=== PATIENT | female | born 1955 | race Caucasian/White ===

== ENCOUNTER 2018-11-06 01:00 | Outpatient (CLI) | payer BC, SELFPAY ==
--- NOTE | 2018-11-06 13:00 | DI.MAMMO_ITS ---
SYMPTOM/DIAGNOSIS: SCREENING Z12.31 MAMMOGRAM: Mammograms were interpreted according to the usual protocol including computer analysis with CAD system, tomosynthesis and C view imaging. Comparison with prior examinations. Breast density B. No suspicious masses or microcalcifications are seen. There is an asymmetric density in the outer left breast seen on the cranial caudad view. This area should be further evaluated with spot compression view. Ultrasound may be indicated at that time.. IMPRESSION: Additional views of the left breast as described. Category 0 - B MQSA ASSESSMENT OF FINDINGS: Incomplete: Needs additional imaging evaluation. Category 0. Patient will receive a letter notifying them of these results. BI-RADS category B. There are scattered areas of fibroglandular density.
== END 2018-11-06 01:20 ==
PROVIDERS: PCP Family Medicine; Visit Provider Nurse Practitioner Family
DX: Z12.31 Encounter for screening mammogram for malignant neoplasm of breast (principal); R92.8 Other abnormal and inconclusive findings on diagnostic imaging of breast
CPT/HCPCS: 77063; 77067

== ENCOUNTER 2018-11-15 01:47 | Outpatient (CLI) | payer BC, SELFPAY ==
--- NOTE | 2018-11-15 09:15 | DI.MAMMO_ITS ---
SYMPTOM/DIAGNOSIS: F/U MAMMO, ASYMMETRIC DENSITY LEFT BREAST ADDITIONAL VIEWS: Additional images are interpreted according to the usual protocol including tomosynthesis and 2D imaging. Spot compression CC view was performed of a questioned focal asymmetry in the lateral breast. No persistent abnormality is seen. IMPRESSION: Category 1, negative mammogram. Yearly screening mammography is recommended. SA ASSESSMENT OF FINDINGS: Negative. Category 1. Patient will receive a letter notifying them of these results. BI-RADS category B. There are scattered areas of fibroglandular density.
== END 2018-11-15 02:07 ==
PROVIDERS: PCP Family Medicine; Visit Provider Nurse Practitioner Family
DX: Z12.31 Encounter for screening mammogram for malignant neoplasm of breast (principal); R92.8 Other abnormal and inconclusive findings on diagnostic imaging of breast; N64.59 Other signs and symptoms in breast
CPT/HCPCS: 77063; 77067

== ENCOUNTER 2019-01-08 09:10 | Day surgery (SDC) | payer BC, SELFPAY ==
--- NOTE | 2019-01-08 06:51 | W.COLOREPORT ---
Date of service: 01/08/19 Time of Service: 10:53 Colonoscopy Report Date of procedure: 01/08/19 Pre-op diagnosis general: Colon Cancer Screening Post-op diagnosis procedure note: other (descending and sigmoid colon polyp) Procedure: Colonoscopy with polypectomy Surgeon: Malgorzata Leong Anesthesia proc note operative: other (general/ ASA 2/ Faisal Reece CRNA) Estimated blood loss (mL): 3 Pathology: other (descending and sigmoid polyp) Complications: None Disposition: no change Indications: Mrs. Castillo is a pleasant 63 year old seen in the office for a follow up Colonoscopy. Her last colonoscopy was in 2006 and was normal. Risks, benefits and complications have been reviewed. Complications include but are not limited to bleeding, pain, perforation, missed small lesion/polyp, sore throat, aspiration and adverse reaction to the medications. Questions were entertained and answered to their satisfaction and they wished to proceed. No guarantees were given or implied. Prep: Miralax/Dulcolax Procedure Start Time: 10:53 Procedure End Time: 11:14 Retraction Time: 16 minutes Findings: 2 small sessile polyps removed with cold forceps. Procedure Description: After informed consent was obtained the patient was taken to the procedure room and placed in a left decubitous position. Monitors were applied and a time out was done. The patients name, date of , procedure, allergies to medications and metal in their body was reviewed. The patient was then sedated. Once sedated and comfortable a rectal exam was done. External exam was normal. Internal exam revealed a normal sphincter tone and no palpable masses. The scope was then introduced and retro-flexed. No internal hemorrhoids, masses or polyps were identified. The scope was then advanced to the cecum without difficulty. The TI and appendiceal orifice were identified. The prep was good. The scope was then slowly retracted over 16 minutes back into the rectum. Polyps were removed with cold forceps in the descending and sigmoid colon. The scope was removed and the patient was woken up and taken back to Same day surgery in stable condition. The patient tolerated the procedure well and there were no immediate complications. Follow up: The patient should follow up in 3-5 years unless they develop changes in bowel habits or other new gastrointestinal complaints.
--- NOTE | 2019-01-08 06:53 | W.PM.DSUDISC ---
Discharge Plan Disposition Patient Disposition: HOME Condition: Good Discharge Details Reason For Visit: Colon Cancer Screening Attending Provider: Malgorzata Leong Primary Care Provider: Erendira Jung Home Meds and New Rx's Prescriptions: Continued omeprazole 20 mg capsule,delayed release(DR/EC) 20 mg PO DAILY RF: 0 lamotrigine [Lamictal] 200 mg tablet 200 mg PO BID RF: 0 metoprolol succinate 100 MG tablet extended release 24 hr 100 mg PO DAILY RF: 0 Colace 50 MG capsule 250 mg PO BID RF: 0 lamotrigine [Lamictal] 25 MG tablet, chewable dispersible 50 mg PO BID RF: 0 lisinopril 10 MG tablet 10 mg PO DAILY RF: 0 aspirin [Aspirin Low-Strength] 81 MG tablet,chewable 81 mg PO DAILY RF: 0 vitamin E succinate 400 UNIT tablet 400 unit PO BID RF: 0 simvastatin 20 MG tablet 20 mg PO DAILY RF: 0 cholecalciferol (vitamin D3) 1,000 UNIT capsule 1,000 unit PO BID RF: 0 calcium carbonate [Calcium 600] 600 mg calcium (1,500 mg) Tablet 600 mg PO DAILY RF: 0 acetaminophen [Tylenol Arthritis Pain] 650 mg Tablet Extended Release 650 mg PO ONCE RF: 0 Discontinued polyethylene glycol 3350 17 gram/dose powder 238 g PO ONCE Qty: 238 RF: 0 bisacodyl [Dulcolax (bisacodyl)] 5 mg tablet,delayed release (DR/EC) 5 mg PO ONCE Qty: 4 RF: 0 Discharge Instructions Instructions: Colonoscopy (DC), Colorectal Polyps (DC) Additional Instructions: Findings: 2 small polyps Follow up:depends on final pathology report. I will send you a letter in the mail with the recommendations Please call if you develop: fevers >101.5 Nausea or Vomiting Abdominal pain that is not transient DAY SURGERY UNIT POST COLONOSCOPY INSTRUCTIONS 1. Because there will be medication in your system for the next 24 hours, you may feel a little sleepy. Your coordination will be affected. Therefore: a. Do not drive or operate dangerous equipment for 24 hours. b. Do not drink alcohol beverages for 24 hours (not even beer). c. Plan to go home and rest for the day. 2. Generally there are no restrictions on your activity after a day or so has gone by, but you may feel a bit fatigued for a few days. 3 After you arrive home you may have a light meal and return to a normal diet as you can tolerate it without feeling sick to your stomach. 4. After surgery, you may feel pain or discomfort. This should be only transient, but if it persists please contact your doctor. 5. If there are any questions regarding the findings of your procedure, please feel free to contact your doctor. 6. If you are unable to contact your doctor with a problem, contact the hospital at [phone]. 7. Continue all your regular medications unless directed otherwise. I understand the above instructions and have no questions. Signature of Patient or Responsible Adult Escort Date/Time Name of Responsible Adult Escort Signature of Nurse Date/Time Activity:: Activity as Tolerated Diet:: As Tolerated Discharge Orders Discharge Orders: Discharge Order (Routine); Ordered 01/08/19 Ordered By: Malgorzata Leong DS: Diagnosis Discharge Diagnosis (1) S/P colonoscopy: Status: Acute (2) Colorectal polyps: Status: Acute
[2019-01-08 09:45] VITALS: BP 143/89; PULSE 66; RESP 16; TEMP 35.9; O2SAT 97
[2019-01-08] MEDS: Lactated Ringers 1,000 ML 80 ML IV (10:00)
--- NOTE | 2019-01-08 11:06 | BOWEL_PTH ---
PATIENT: Heather Castillo LOC: [facility] U#:[id number] AGE/SX: 63/F ROOM: RE01/08/[address]: Malgorzata Leong MD : 1955 BED: DIS: 01/08/2019 SPEC #: [id number] RECD: 01/08/19 12:36 STATUS: MARICARMEN REQ #: [id number] SHAREE: 01/08/19 11:[address]: Malgorzata Leong DEPT: Surgical Specimen RECD BY: Diann Hernandez ENTERED: 01/08/19 12:37 SP TYPE: Bowel OTHR DR: Erendira Jung Tissues: 1 - BIOPSY BOWEL 2 - BIOPSY BOWEL Procedures: GROSS AND MICRO LEVEL 4 Comments: [id number]
[2019-01-08 11:50] VITALS: BP 150/83; PULSE 63; RESP 16; TEMP 36.2; O2SAT 95
== END 2019-01-08 12:32 | disposition home or self-care (01) ==
LOC: SUR 09:10
PROVIDERS: PCP Family Medicine; Visit Provider Surgery
PROC: 0DJD8ZZ Inspection of Lower Intestinal Tract, Via Natural or Artificial Opening Endoscopic (ICD-10-PCS; CPT 45378; principal; 2019-01-08 10:00)
DX: Z12.11 Encounter for screening for malignant neoplasm of colon (principal); D12.4 Benign neoplasm of descending colon; K63.5 Polyp of colon; I10 Essential (primary) hypertension
CPT/HCPCS: 45380; 88305

== ENCOUNTER 2020-01-23 02:06 | Outpatient (CLI) | payer BC, SELFPAY ==
--- NOTE | 2020-01-23 10:30 | DI.MAMMO_ITS ---
EXAM: MG MAMMO SCREENING CLINICAL HISTORY: screening TECHNIQUE: Mammograms were interpreted according to the usual protocol including computer analysis w [employer] CAD system, tomosynthesis and C-view imaging. COMPARISON: FINDINGS: The breasts are of moderate density with fairly symmetrical distribution of fibroglandular tissue. N o dominant mass or clumped microcalcification is identified the current examination is compared with previous examinations including October 2018 and there has been no gross interval change in appearance in comparison with the previous studies. IMPRESSION: No specific evidence of malignancy at this time. Routine screening examinations are suggested at yea rly intervals in this age group according to the ACS ACR guidelines. BI-RADS Cat 1 - Negative: Breast Density - Category B - Scattered areas of fibroglandular density
== END 2020-01-23 02:26 ==
PROVIDERS: PCP Family Medicine; Visit Provider Nurse Practitioner Family
DX: Z12.31 Encounter for screening mammogram for malignant neoplasm of breast (principal)
CPT/HCPCS: 77063; 77067

== ENCOUNTER 2020-02-07 17:33 | Outpatient (REF) | payer BC, SELFPAY ==
[2020-02-07 16:57] LABS: Bacteria Moderate HPF (Negative); C & S Indicated? C&S Done As Ordered; Crystals Negative HPF (Negative); Epithelial Cells Rare HPF (Negative); Mucus Heavy (Negative); WBC 20-50 HPF (0-5)
== END 2020-02-07 17:53 ==
LOC: LBN 17:33
PROVIDERS: PCP Family Medicine; Visit Provider Nurse Practitioner Family
DX: R31.9 Hematuria, unspecified (principal)
CPT/HCPCS: 81015; 87086

== ENCOUNTER 2020-02-13 01:47 | Outpatient (CLI) | payer BC, SELFPAY ==
--- NOTE | 2020-02-13 12:30 | DI.US_ITS ---
EXAM: US PELVIS TRANSVAGINAL CLINICAL HISTORY: POSTMENOPAUSAL BLEEDING, H/O ENDOMETRIAL POLYP,N95.0 TECHNIQUE: Ultrasound performed using standard protocol. COMPARISON: US PELVIS TRANSVAG from 10/31/2012 FINDINGS: Pelvic ultrasound was performed transabdominally and transvaginally. Please see the accompanying nikki a sheet for measurements of the pelvic structures. The ovaries are unremarkable in appearance with no evidence a mass. The myometrium is unremarkable. The endometrial stripe is thickened and mildly heterogeneous, measuring about 19 millimeters in thic kness. This is an abnormal finding in a postmenopausal patient, endometrial biopsy should be conside red to exclude neoplasm. Limited scanning of the kidneys is unremarkable. No free fluid identified in the cul-de-sac. IMPRESSION: Marked mildly heterogeneous thickening of endometrial stripe, endometrial biopsy should be considered to evaluate the possibility of neoplasm. DATA REPOSITORY:
== END 2020-02-13 02:07 ==
PROVIDERS: PCP Family Medicine; Visit Provider Nurse Practitioner Family
DX: N95.0 Postmenopausal bleeding (principal); R93.89 Abnormal findings on diagnostic imaging of other specified body structures
CPT/HCPCS: 76830; 76856

== ENCOUNTER 2020-02-18 03:32 | Outpatient (CLI) | payer BC, SELFPAY ==
[2020-02-18 10:58] LABS: Abs Immature Grans 0.01 k/cumm (0.0-0.09); Absolute Basophil Count 0.03 k/cumm (0.0-0.2); Absolute Eosinophil Count 0.22 k/cumm (0.0-0.7); Absolute Lymphocyte Count 1.76 k/cumm (1.2-3.4); Absolute Monocyte Count 0.46 k/cumm (0.11-0.7); Absolute Neutrophil Count 2.76 k/cumm (1.2-6.7); Basophils % 0.6; Eosinophils % 4.2; HCT 39.2 % (36.0-46.0); HGB 13.5 g/dL (12.0-15.5); Immature Grans % 0.2 %; Lymphocytes % 33.6; Mean Corp. HGB Concentration 34.4 g/dL (32.0-36.0); Mean Corpuscular Hemoglobin 32.1 pg (27.0-33.0); Mean Corpuscular Volume 93.3 fL (80-95); Mean Platelet Volume 9.2 fL (8.0-11.0); Monocytes % 8.8; Neutrophils % 52.6; Platelet Count 257 x1000/uL (130-400); RBC Distribution Width 12.9 % (11.7-14.6); White Blood Cell Count 5.24 k/cumm (4.4-10.8)
== END 2020-02-18 03:52 ==
PROVIDERS: PCP Family Medicine; Visit Provider Obstetrics & Gynecology
DX: N95.0 Postmenopausal bleeding (principal); Z01.818 Encounter for other preprocedural examination
CPT/HCPCS: 36415; 86850; 86900; 86901; 85025

== ENCOUNTER 2020-02-18 08:33 | Outpatient (CLI) | payer BC, SELFPAY ==
[2020-02-18 23:24] LABS: COVID-19 RT-PCR UVMMC Result Negative (Negative)
== END 2020-02-18 08:53 ==
PROVIDERS: PCP Family Medicine; Visit Provider Obstetrics & Gynecology
DX: Z01.818 Encounter for other preprocedural examination (principal); Z11.59 Encounter for screening for other viral diseases
CPT/HCPCS: U0003

== ENCOUNTER 2020-02-20 06:15 | Day surgery (SDC) | payer BC, SELFPAY ==
[2020-02-20] VITALS (8 sets, daily range): BP systolic 72–153; BP diastolic 39–92; PULSE 52–67; RESP 12–18; TEMP 36–36.7; O2SAT 95–99
[2020-02-20] MEDS: Lactated Ringers 1,000 ML 125 ML IV (07:05)
--- NOTE | 2020-02-20 08:01 | ENDOMET_PTH ---
PATIENT: Heather Castillo LOC: [facility] U#:[id number] AGE/SX: 64/F ROOM: RE02/20/[address]: James Joyner MD : 1955 BED: DIS: 02/20/2020 SPEC #: [id number] RECD: 02/20/20 12:15 STATUS: MARICARMEN REQ #: [id number] SHAREE: 02/20/20 08:[address]: James Joyner DEPT: Surgical Specimen RECD BY: Lisy Hyde ENTERED: 02/20/20 12:16 SP TYPE: Endomet OTHR DR: Erendira Jung Tissues: 1 - ENDOMETRIUM BX/CURRETTE 2 - ENDOMETRIUM BX/CURRETTE Procedures: GROSS AND MICRO LEVEL 4 Comments: [id number]
[2020-02-20] MEDS: Lidocaine 1% Multi-Dose 50 ML VIAL (08:15)
--- NOTE | 2020-02-20 09:02 | W.PM.OP ---
Date of service: 02/20/20 Time of Service: 09:02 Operative Note Operative Note DATE OF PROCEDURE: 02/20/20 PRE-OP DIAGNOSIS: Postmenopausal bleeding POST-OP DIAGNOSIS: same PROCEDURE: Hysteroscopy D&C with polypectomy SURGEON: James Joyner ANESTHESIA: NEETA PATHOLOGY: other (1. Endometrial polyp 2. Endometrial curettings) COMPLICATIONS: None Patient was transported to: PACU Patient's condition: stable Findings: Large 4 cm polyp filling the endometrial cavity. Atrophic appearing endometrium Procedure Description: The patient was taken to the operating room and after an adequate level of sedation was achieved the patient was placed in lithotomy position. The patient was prepped and draped in usual sterile manner. A weighted speculum was placed in the vagina with good visualization of the cervix. The cervix was grasped with a single-tooth tenaculum. Approximately 15 mL's of 1% plain lidocaine solution was used to instill a paracervical block. The cervix was gently dilated with Nguyen dilators. The tip of the polyp could be visualized at the external os. The 3 mm flexible hysteroscope with normal saline distention media was advanced to the cervix. A large endometrial polyp that filled the endometrial cavity was noted. Hysteroscope was removed. Polyp forceps were advanced and the polyp was grasped and rotated. The polyp was removed and submitted as an individual specimen. The hysteroscope was reinserted and the remainder of the endometrium appeared atrophic. The polyp had been removed in its entirety. A sharp curettage was performed and this was submitted as separate specimen. All instrumentation was removed. The procedure was concluded at this point. Sponge and instrument counts were correct at the occlusion of the procedure. The patient was transferred to PACU in stable condition.
--- NOTE | 2020-02-20 09:39 | W.PM.DSUDISC ---
Discharge Plan Disposition Patient Disposition: HOME Condition: Good Discharge Details Attending Provider: James Joyner Primary Care Provider: Erendira Jung Home Meds and New Rx's Prescriptions: Continued omeprazole 20 mg capsule,delayed release(DR/EC) 20 mg PO DAILY RF: 0 lamotrigine [Lamictal] 200 mg tablet 250 mg PO BID RF: 0 metoprolol succinate 100 MG tablet extended release 24 hr 100 mg PO DAILY RF: 0 Colace 50 MG capsule 250 mg PO BID RF: 0 lisinopril 10 MG tablet 10 mg PO DAILY RF: 0 aspirin [Aspirin Low-Strength] 81 MG tablet,chewable 81 mg PO DAILY RF: 0 vitamin E succinate 400 UNIT tablet 400 unit PO BID RF: 0 simvastatin 20 MG tablet 20 mg PO DAILY RF: 0 cholecalciferol (vitamin D3) 1,000 UNIT capsule 1,000 unit PO BID RF: 0 calcium carbonate [Calcium 600] 600 mg calcium (1,500 mg) Tablet 600 mg PO DAILY RF: 0 acetaminophen [Tylenol Arthritis Pain] 650 mg Tablet Extended Release 650 mg PO ONCE RF: 0 aspirin [Aspir-81] 81 mg Tablet,Delayed Release (Dr/Ec) 81 mg PO DAILY RF: 0 Discharge Instructions Stand Alone Forms: DSU Post Suction D+C, Dione Caputo (DSU) Activity:: Activity as Tolerated Remove Dressings/Wound Care:: Do Not Remove Diet:: As Tolerated Discharge Orders Discharge Orders: Discharge Order (Routine); Ordered 02/20/20 Ordered By: James Joyner Discharge Data Discharge Comment: Follow up with Dr. Joyner in one week DS: Diagnosis Discharge Diagnosis (1) Postmenopausal Bleeding: Status: Acute
== END 2020-02-20 10:25 | disposition home or self-care (01) ==
PROVIDERS: PCP Family Medicine; Visit Provider Obstetrics & Gynecology
PROC: 0UDB8ZZ Extraction of Endometrium, Via Natural or Artificial Opening Endoscopic (ICD-10-PCS; CPT 58558; principal; 2020-02-20 07:30)
DX: N95.0 Postmenopausal bleeding (principal); N84.0 Polyp of corpus uteri; R93.89 Abnormal findings on diagnostic imaging of other specified body structures; K21.9 Gastro-esophageal reflux disease without esophagitis; G47.33 Obstructive sleep apnea (adult) (pediatric); I10 Essential (primary) hypertension
CPT/HCPCS: 58558; 88305; J1100; J1885; J2001; J2405; J3010

== ENCOUNTER 2020-12-22 17:35 | Outpatient (REF) | payer MEDICARE, BC, SELFPAY ==
--- NOTE | 2020-12-22 16:00 | PAPFT_PTH ---
PATIENT: Heather Castillo LOC: [facility] U#:[id number] AGE/SX: 65/F ROOM: RE12/22/[address]: MILDRED Mccord : 1955 BED: DIS: 12/22/2020 SPEC #: [id number] RECD: 12/22/20 18:33 STATUS: MARICARMEN REQ #: [id number] SHAREE: 12/22/20 16:[address]: Christy Perdomo DEPT: COUNT INCLUDES THE [facility] Cytology RECD BY: Lisy Hyde ENTERED: 12/22/20 18:34 SP TYPE: PAPFT OTHR DR: Erendira Jung Tissues: 1 - CX/ENDOCX FOR PAP SMEARS Procedures: PAP THIN PREP/UVM Screening HPV DNA PROBE Comments: [id number]
== END 2020-12-22 17:36 | disposition home or self-care (01) ==
LOC: LBN 17:35
PROVIDERS: PCP Family Medicine; Visit Provider Nurse Practitioner Family
DX: Z12.4 Encounter for screening for malignant neoplasm of cervix (principal); Z11.51 Encounter for screening for human papillomavirus (HPV)
CPT/HCPCS: 88142; 87624

== ENCOUNTER 2021-02-02 01:14 | Outpatient (CLI) | payer MEDICARE, BC, SELFPAY ==
--- NOTE | 2021-02-02 10:45 | DI.MAMMO_ITS ---
Exam(s) MAMMO SCREENING EXAM: MAMMO SCREENING CLINICAL HISTORY: screening,Z12.39. TECHNIQUE: Bilateral full field digital CC and MLO mammographic images were obtained with 3D tomosyn thesis and utilizing computer aided detection (CAD). COMPARISON: Prior mammograms dating back to 2011, the most recent being January 2020. FINDINGS: There has been no significant change in the appearance and distribution of the fibroglandular tissue. There are no new spiculated masses nor malignant appearing microcalcification groups. There is no significant architectural distortion nor skin thickening-retraction. IMPRESSION: No radiographic evidence of malignancy. BI-RADS Category 1 - Negative Breast Density - Category B - Scattered areas of fibroglandular density Breast density Category C or D implies that the patient has dense breast tissue. Dense breast tissue can make it harder to find cancer on a mammogram. Dense breast tissue is also associated with an incr eased risk of breast cancer. This information about the result of the mammogram report was provided to the patient to raise their awareness. Use this report when you speak with the patient about their risks for breast cancer, which includes their family history. At that time, you may recommend additional screening tests (Ultrasoun d or MRI) as these tests may add significant information. A negative radiographic report should not delay biopsy if a dominant or clinically suspicious mass is present. Up to ten percent of cancers are not identified on mammography. A negative report may reinforce clinical impression. Adenosis and dense breasts may obscure an underlying neoplasm. False positive reports average 6 to 10%. Patient will receive a letter notifying them of these results.
== END 2021-02-02 01:34 ==
PROVIDERS: PCP Family Medicine; Visit Provider Nurse Practitioner Family
DX: Z12.31 Encounter for screening mammogram for malignant neoplasm of breast (principal)
CPT/HCPCS: 77063; 77067

== ENCOUNTER → 2022-02-09 00:17 | Outpatient (CLI) | payer MEDICARE, SELFPAY ==
--- NOTE | 2022-02-09 15:40 | DI.MAMMO_ITS ---
Exam(s) MAMMO SCREENING EXAM: MAMMO SCREENING CLINICAL HISTORY: screening TECHNIQUE: Mammograms were interpreted according to the usual protocol including computer analysis w [employer] CAD system, tomosynthesis and C-view imaging. COMPARISON: 2011 through 2020 FINDINGS: The breasts are composed of scattered fibroglandular densities, Breast Density category B. No suspicious masses or suspicious microcalcifications are seen. No skin thickening or abnormal axillary lymph nodes are seen. There has been no significant change from prior exams. IMPRESSION: BI-RADS Category 1, Negative mammogram Yearly screening mammography is recommended. Breast Density - Category B, scattered fibroglandular densities. A negative radiographic report should not delay biopsy if a dominant or clinically suspicious mass is present. Up to ten percent of cancers are not identified on mammography. A negative report may reinforce clinical impression. Adenosis and dense breasts may obscure an underlying neoplasm. False positive reports average 6 to 10%. Patient will receive a letter notifying them of these results.
== END ==
PROVIDERS: PCP Family Medicine; Visit Provider Nurse Practitioner Family
DX: Z12.31 Encounter for screening mammogram for malignant neoplasm of breast (principal)
CPT/HCPCS: 77063; 77067

== ENCOUNTER 2022-05-17 11:12 | Outpatient (CLI) | payer MEDICARE, SELFPAY ==
--- NOTE | 2022-05-17 11:00 | DI.RAD_ITS ---
Exam(s) XR HIP RT COMPLETE AP PELVIS EXAM: XR HIP RT COMPLETE AP PELVIS INDICATION: pain in hip. COMPARISON: No exams were available for comparison TECHNIQUE: 2D digital imaging was performed. Two views. FINDINGS: Hip joint spaces are well maintained. There is spurring at the right acetabular. There is also mild spurring at the margin of the right femoral head. There is mild spurring at the left acetabulum. T here enthesophytes at the greater trochanters. IMPRESSION: Degenerative changes of the hips, right greater than left. DATA REPOSITORY: RADIATION DOSE DELIVERED:
== END 2022-05-17 11:13 | disposition home or self-care (01) ==
LOC: DIORS 11:12
PROVIDERS: PCP Family Medicine; Referring Provider Family Medicine; Visit Provider Physician Assistant Surgical
DX: M16.11 Unilateral primary osteoarthritis, right hip (principal)
CPT/HCPCS: 99203; 73502

== ENCOUNTER → 2022-05-27 01:41 | Outpatient (CLI) | payer MEDICARE, SELFPAY ==
--- NOTE | 2022-05-27 08:15 | DI.RAD_ITS ---
Exam(s) RF JOINT INJECTION FLUORO GUID EXAM: RF JOINT INJECTION FLUORO GUID CLINICAL HISTORY: R HIP INJ UNDER FLUORO,RT HIP PAIN, M25.551 TECHNIQUE: 2D and realtime digital imaging was performed. COMPARISON: No exams were available for comparison FINDINGS: Fluoroscopy is utilized by Dr. Fernandez during right hip injection. Hard copy shows injection in the right hip joint. IMPRESSION: RADIATION DOSE DELIVERED: lyla Babcock=0.39 mGy Total DLP
[2022-05-27] MEDS: Omnipaque 300 MG/ML 10 ML BTL 5 ML IJ (15:43)
[2022-05-27] MEDS: Bupivacaine 0.5% Pres-Free 10 ML VIAL 5 ML IJ (15:45)
[2022-05-27] MEDS: methylPREDNISolone ACETATE 80 MG/ML VIAL IM (15:45)
--- NOTE | 2022-05-27 17:45 | W.PROCNOTE ---
Date of service: 05/27/22 Time of Service: 14:40 Procedure Note Date of procedure: 05/27/22 Procedure: Right Hip Injection with Fluoroscopic Guidance Surgeon/Proceduralist/Physician: Prakash Fernandez Procedure Diagnosis: Right Hip Femoroacetabular Impingement Procedure Indications: Heather has had persistent pain of the RIGHT hip and groin. Noninvasive measures have been tried. To serve as both diagnostic and therapeutic, an injection under fluoroscopy was recommended. I had discussed the risks of the procedure and the patient elected to proceed. Procedure Description: Heather was greeted in the flouroscopy room. The correct side was identified and the consent was reviewed with the patient and signed. The patient was then placed in the supine position on the fluoroscopy table. The RIGHT hip was then prepped with Chloraprep. The anterolateral injection starting point was identiifed by bony landmarks and fluoroscopy. The skin and soft tissue in the tract of the injection was anesthetized with 1% Lidocaine. A spinal needle was then inserted deep into the hip joint at the level of the lateral femoral neck under fluoroscopic guidance. A small amount of Omnipaque solution was injected to confirm intraarticular placement. Once confirmed, the hip was injected with 5cc of 0.5% Bupivicaine and 80mg of Depo-Medrol. A bandaid was placed on the injection site. The patient tolerated the procedure well.
== END ==
PROVIDERS: PCP Family Medicine; Visit Provider Student in an Organized Health Care Education/Training Program
DX: M25.551 Pain in right hip (principal)
CPT/HCPCS: 20610; 77002; J1040

== ENCOUNTER → 2024-01-18 03:10 | Outpatient (CLI) | payer MEDICARE, SELFPAY ==
--- NOTE | 2024-01-18 09:15 | DI.MAMMO_ITS ---
Exam(s) MAMMO SCREENING EXAM: MAMMO SCREENING CLINICAL HISTORY: screening TECHNIQUE: Mammograms were interpreted according to the usual protocol including computer analysis w [employer] CAD system, tomosynthesis and C-view imaging. COMPARISON: 2013 through 2021 FINDINGS: The breasts are composed of scattered fibroglandular densities, Breast Density category B. No suspicious masses or suspicious microcalcifications are seen. No skin thickening or abnormal axillary lymph nodes are seen. There has been no significant change from prior exams. IMPRESSION: BI-RADS Category 1, Negative mammogram Yearly screening mammography is recommended. Breast Density - Category B, scattered fibroglandular densities. A negative radiographic report should not delay biopsy if a dominant or clinically suspicious mass is present. Up to ten percent of cancers are not identified on mammography. A negative report may reinforce clinical impression. Adenosis and dense breasts may obscure an underlying neoplasm. False positive reports average 6 to 10%. Patient will receive a letter notifying them of these results.
== END ==
PROVIDERS: PCP Registered Nurse Critical Care Medicine; Visit Provider Obstetrics & Gynecology
DX: Z12.31 Encounter for screening mammogram for malignant neoplasm of breast (principal); R92.323 Mammographic fibroglandular density, bilateral breasts
CPT/HCPCS: 77063; 77067

== ENCOUNTER 2024-12-07 09:33 | Outpatient (CLI) | payer MEDICARE, SELFPAY ==
--- NOTE | 2024-12-07 08:45 | DI.RAD_ITS ---
Exam(s) XR HIP PELVIS ADULT BL EXAM: XR HIP PELVIS ADULT BL CLINICAL HISTORY: bilateral hip DJD. TECHNIQUE: 2D digital imaging was performed. Three views. COMPARISON: CR XR HIP RT COMPLETE AP PELVIS from 05/17/2022 FINDINGS: BONES: No acute fracture is present. No bony destructive lesion is seen. There enthesophytes at both greater trochanters. JOINTS: No dislocation present. There is mild narrowing the right hip joint space. There is moderate spurring of the acetabulum and margin of the right femoral head. The left hip joint space is mainta ined. There is [id number] spurring at the glenoid. SI joints and pubic symphysis are unremark able. SOFT TISSUE: Normal. IMPRESSION: [id number] degenerative changes of the hips, right greater than left. DATA REPOSITORY: RADIATION DOSE DELIVERED:
== END 2024-12-07 09:34 | disposition home or self-care (01) ==
LOC: DIORS 09:34
PROVIDERS: PCP Nurse Practitioner Family; Referring Provider Nurse Practitioner Family; Visit Provider Physician Assistant
DX: M70.61 Trochanteric bursitis, right hip (principal); M16.12 Unilateral primary osteoarthritis, left hip; M16.11 Unilateral primary osteoarthritis, right hip
CPT/HCPCS: 20611; 73521; 99214; J1010

== ENCOUNTER 2025-03-15 00:02 | Outpatient (CLI) | payer MEDICARE, SELFPAY ==
--- NOTE | 2025-03-15 11:45 | DI.MAMMO_ITS ---
Exam(s) MAMMO SCREENING EXAM: MAMMO SCREENING CLINICAL HISTORY: screening TECHNIQUE: Mammograms were interpreted according to the usual protocol including computer analysis with CAD system, tomosynthesis and C-view imaging. COMPARISON: 2017 through 2023 FINDINGS: The breasts are composed of scattered fibroglandular densities, Breast Density category B. No suspicious masses or suspicious microcalcifications are seen. No skin thickening or abnormal axillary lymph nodes are seen. There has been no significant change from prior exams. IMPRESSION: BI-RADS Category 1, Negative mammogram Yearly screening mammography is recommended. Breast Density - Category B - There are scattered areas of fibroglandular density. Breast density Category C or D implies that the patient has dense breast tissue. Dense breast tissue can make it harder to find cancer on a mammogram. Dense breast tissue is also associated with an increased risk of breast cancer. This information about the result of the mammogram report was provided to the patient to raise their awareness. Use this report when you speak with the patient about their risks for breast cancer, which includes their family history. At that time, you may recommend additional screening tests (Ultrasound or MRI) as these tests may add significant information. A negative radiographic report should not delay biopsy if a dominant or clinically suspicious mass is present. Up to ten percent of cancers are not identified on mammography. A negative report may reinforce clinical impression. Adenosis and dense breasts may obscure an underlying neoplasm. False positive reports average 6 to 10%. Patient will receive a letter notifying them of these results.
== END 2025-03-15 00:22 ==
LOC: DI 00:02
PROVIDERS: PCP Nurse Practitioner Family; Visit Provider Obstetrics & Gynecology
DX: Z12.31 Encounter for screening mammogram for malignant neoplasm of breast (principal); R92.323 Mammographic fibroglandular density, bilateral breasts
CPT/HCPCS: 77063; 77067

== ENCOUNTER → 2025-04-04 13:30 | Outpatient (BNVA) | payer MEDICARE, SELFPAY | PROVIDERS: PCP Nurse Practitioner Family; Referring Provider Nurse Practitioner Family; Visit Provider Student in an Organized Health Care Education/Training Program | DX: M16.11 Unilateral primary osteoarthritis, right hip (principal) | CPT/HCPCS: 99214 ==

== ENCOUNTER → 2025-05-21 10:00 | Outpatient (BNVA) | payer MEDICARE, SELFPAY | PROVIDERS: PCP Nurse Practitioner Family; Referring Provider Nurse Practitioner Family; Visit Provider Podiatrist ==

== ENCOUNTER 2025-06-06 18:11 | Outpatient (REF) | payer MEDICARE, SELFPAY ==
[2025-06-06 15:06] LABS: HCT 33.6 % (36.0-46.0); HGB 11.5 g/dL (11.2-15.7); MCH 32.7 pg (27.0-33.0); MCHC 34.2 % (32.0-36.0); MCV 96 fL (80-95); MPV 9.2 fL (8.0-11.0); Platelet Count 273 10^3/uL (130-400); RBC 3.52 10^6/uL (3.93-5.22); RDW 12.3 % (11.7-14.6); RDW-SD 42.5 fL; WBC 6.58 10^3/uL (4.4-10.8)
[2025-06-06 15:17] LABS: Anion Gap 7.2 mmol/L (3-11); BUN 19 mg/dL (7-18); CO2 28.8 mmol/L (21.0-32.0); Calcium 9.1 mg/dL (8.5-10.1); Chloride 103 mmol/L (98-107); Estimated GFR 79.22 (mL/min/1.73m2); Glucose 99 mg/dL (74-106); Potassium 4.3 mmol/L (3.5-5.1); Sodium 139 mmol/L (136-145)
== END 2025-06-06 18:12 | disposition home or self-care (01) ==
LOC: LBN 18:11
PROVIDERS: PCP Nurse Practitioner Family; Visit Provider Student in an Organized Health Care Education/Training Program
DX: M16.11 Unilateral primary osteoarthritis, right hip (principal); Z01.818 Encounter for other preprocedural examination
CPT/HCPCS: 80048; 85027

== ENCOUNTER 2025-06-19 05:56 | Day surgery (SDC) | payer MEDICARE, SELFPAY ==
[2025-06-19] VITALS (27 sets, daily range): BP systolic 144–175; BP diastolic 50–104; PULSE 54–69; RESP 12–28; TEMP 36.3–36.8; O2SAT 94–99; BMI 29.7
[2025-06-19] MEDS: Acetaminophen 500 MG TAB 1000 MG PO (06:14)
[2025-06-19] MEDS: Celecoxib 200 MG CAP 400 MG PO (06:14)
[2025-06-19] MEDS: Lactated Ringers 1,000 ML 80 ML IV (06:39)
--- NOTE | 2025-06-19 06:46 | W.ANESPRE ---
General Info Date of Service Date Performed: 06/19/25 Height: 5 ft 4 in Weight: 78.5 kg Body Mass Index (BMI): 29.7 Surgical Procedure: Operation Date: 06/19/25 07:50 Proposed Procedure Side Surgeon p Hip Total Hip Anterior, ACTIS Right Prakash Fernandez MD Meds Allergies and Home Medications Allergies Allergy/AdvReac Type Severity Reaction Status Date / Time ampicillin Allergy Intermediate HIVES Verified 06/19/25 06:09 strawberry Allergy Intermediate HIVES, Verified 06/19/25 06:09 ITCHY oxcarbazepine (From Allergy Cognitive Verified 06/19/25 06:09 Trileptal) Dysfunction Estrogens AdvReac Severe It cancels Verified 06/19/25 06:09 out seizure medication OLIVES Allergy Mild HIVES, Uncoded 06/19/25 06:09 ITCHY Home Medication Medication Instructions Recorded metoprolol succinate 100 mg 100 mg PO DAILY 10/26/12 tablet,extended release 24 hr cholecalciferol (vitamin D3) 25 1,000 unit PO BID 04/30/14 mcg (1,000 unit) capsule simvastatin 20 mg tablet 20 mg PO DAILY 04/30/14 calcium 600 mg (as 1 tab PO DAILY 07/14/21 carbonate)-vitamin D3 25 mcg (1,000 unit) tablet lamotrigine 200 mg tablet 300 mg PO BID 06/22/22 (Lamictal) lamotrigine 25 mg tablet (Lamictal) 25 mg PO BID 06/22/22 vitamin E (dl, acetate) 450 mg 1,000 mg PO DAILY 06/22/22 (1,000 unit) capsule cyanocobalamin (vitamin B-12) 1,000 mcg PO DAILY 12/07/24 1,000 mcg tablet,extended release (Vitamin B-12 ER) hydrochlorothiazide 25 mg tablet 25 mg PO DAILY 12/07/24 levothyroxine 125 mcg capsule 125 mcg PO HS 12/07/24 lisinopril 40 mg tablet 40 mg PO DAILY 12/07/24 docusate sodium 100 mg capsule 100 mg PO DAILY 02/19/25 (Colace) ketoconazole 2 % topical cream 1 applic topical DAILY #120 grams 05/22/25 acetaminophen 500 mg tablet 1,000 mg (2 x 500 mg) PO TID #90 06/19/25 tabs aspirin 81 mg tablet,delayed 81 mg PO BID #60 tabs 06/19/25 release celecoxib 200 mg capsule 200 mg PO BID #60 caps 06/19/25 dexamethasone 4 mg tablet 4 mg PO DAILY #2 tabs 06/19/25 oxycodone 5 mg tablet 5 mg PO Q4H PRN pain #12 tabs 06/19/25 pantoprazole 40 mg tablet,delayed 40 mg PO DAILY #14 tabs 06/19/25 release Current Visit Medications: Current Medications Generic Name Dose Route Start Last Admin Trade Name Salvatore PRN Reason Stop Dose Admin Acetaminophen 1,000 mg 06/19/25 06:00 06/19/25 06:14 Acetaminophen 500 Mg Tab PO 06/19/25 23:59 1,000 mg PREOP RACHELL Administration Celecoxib 400 mg 06/19/25 06:00 06/19/25 06:14 Celecoxib 200 Mg Cap PO 06/19/25 23:59 400 mg PREOP RACHELL Administration Ringer's Solution 1,000 mls @ 80 mls/hr 06/19/25 06:00 06/19/25 06:39 IV 06/19/25 23:59 80 mls/hr INFUSION RACHELL Administration Cefazolin Sodium/Dextrose 2 gm in 50 mls @ 100 mls/hr 06/19/25 06:00 Ancef Duplex IVPB 06/19/25 23:59 PREOP RACHELL Tranexamic Acid/Sodium Chloride 1,000 mg in 100 mls @ 600 mls/hr 06/19/25 06:00 IVPB 06/19/25 23:59 PREOP RACHELL IV Miscellaneous Supplies 1 each 06/19/25 06:00 Iv Access IV 06/19/25 23:59 DIRECTED RACHELL Sodium Chloride 0 ml 06/19/25 06:00 Normal Saline Flush 10 Ml Syr IV 06/19/25 23:59 PRN PRN Sodium Chloride 0 ml 06/19/25 06:00 Normal Saline 10 Ml Vial IJ 06/19/25 23:59 DIRECTED PRN Sterile Water 0 ml 06/19/25 06:00 Water,Injection,Sterile 10 Ml Vial IJ 06/19/25 23:59 DIRECTED PRN PFSH Active Problems Active Problems: Problem Status Onset Code Dystrophia unguium Acute L60.3 Onychomycosis Acute B35.1 History of thyroid cancer Acute Z85.850 Trochanteric bursitis, right hip Acute M70.61 Degenerative joint disease of left hip Chronic M16.12 Osteoarthritis of right hip Acute M16.11 Bilateral high frequency sensorineural hearing loss Acute H90.3 Snoring Acute R06.83 Nasal obstruction Acute J34.89 Nasal septal spur Acute J34.89 Gastro-esophageal reflux disease without esophagitis Acute K21.9 Foot drop, unspecified foot Acute M21.379 Pure hypercholesterolemia, unspecified Acute E78.00 Episode of memory loss Acute R41.3 Radiculopathy, lumbosacral region Acute M54.17 Obstructive sleep apnea Chronic G47.33 Benign paroxysmal positional vertigo of left ear Acute H81.12 Other abnormalities of gait and mobility Acute R26.89 Hyperlipidemia, unspecified Acute E78.5 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 uses CPAP Surgical History Surgical History History of thyroidectomy, total S/P colonoscopy (~01/08/19) 2007-normal, pt. states she has one since Replacement of total knee joint bilateral in 2016 section X 3 Tobacco Smoking/Tobacco Use Status: Never Passive smoking exposure: Yes Alcohol Alcohol Intake: never Substance Use Substance use: Never Substance use type: does not use Vital Signs and Lab Results Vital Signs Most Recent Vital Signs in EMR: Most Recent Vital Signs Temp Pulse Resp BP Pulse Ox 36.4 C L 69 16 166/56 H 98 06/19/25 06:04 06/19/25 06:04 06/19/25 06:04 06/19/25 06:04 06/19/25 06:04 Lab Results Complete Blood Count: WBC, (4.4-10.8) 6.58 10^3/uL 06/06/25, 13:35 RBC, (3.93-5.22) 3.52 10^6/uL L 06/06/25, 13:35 Hgb, (11.2-15.7) 11.5 g/dL 06/06/25, 13:35 Hct, (36.0-46.0) 33.6 % L 06/06/25, 13:35 Plt Count, (130-400) 273 10^3/uL 06/06/25, 13:35 Complete Metabolic Panel: Sodium, (136-145) 139 mmol/L 06/06/25, 13:35 Potassium, (3.5-5.1) 4.3 mmol/L 06/06/25, 13:35 Chloride, (98-107) 103 mmol/L 06/06/25, 13:35 Carbon Dioxide, (21.0-32.0) 28.8 mmol/L 06/06/25, 13:35 BUN, (7-18) 19 mg/dL H 06/06/25, 13:35 Creatinine, (0.55-1.02) 0.8 mg/dL 06/06/25, 13:35 Est GFR (CKD-EPI 2020), (mL/min/1.73m2) 79.22 06/06/25, 13:35 Calcium, (8.5-10.1) 9.1 mg/dL 06/06/25, 13:35 Glucose, (74-106) 99 mg/dL 06/06/25, 13:35 Imaging and Studies Imaging and Studies Study information below may be from another EMR and interpreted by another provider. Please see original notes in EMR for more complete details. EKG Summary: NSR HR 87 Anesthesia Assessment and Plan Anesthesia History Personal History: No History of Anesthesia Complications Family History: No Family History of Anesthesia Complications Exercise Tolerance Exercise Tolerance: Metabolic Equivalents>4 Pertinent Negatives Pertinent Negatives: No Symptoms of GERD, No Major Cardiovascular Symptoms or Complaints and No Major Pulmonary Symptoms or Complaints Cardiac & Pulmonary Exam Cardiac Exam: Normal S1/S2 Heart Sounds Pulmonary Exam: Clear Bilateral Breath Sounds Implantable Cardiac Device Does patient have a Pacemaker or an ICD?: No Airway Exam Known Difficult Airway: No Mallampati Class: 2 Mouth Opening: Normal (> 3cm) Thyromental Distance: Greater than 3 cm Neck Range of Motion: Limited ROM Neck Circumference: Normal Teeth Condition: Generalized Poor Dentition ASA Classification ASA Score: ASA 2 Emergency Case?: No NPO Status NPO Status: NPO Clears >2 hours, Solids >8 hours Anesthesia Plan Resuscitation Status: Full Code Anesthesia Technique: Spinal Anesthesia Airway Planned: Natural Airway Monitors Used: Standard Monitors
--- NOTE | 2025-06-19 07:13 | W.PM.DSUDISC ---
Date of service: 06/19/25 Discharge Plan Disposition Patient Disposition: Home Condition: Good Discharge Details Reason For Visit: R THR Attending Provider: Prakash Fernandez Primary Care Provider: Carey Ross Home Meds and New Rx's Prescriptions: New acetaminophen 500 mg tablet 1,000 mg PO TID Qty: 90 3RF celecoxib 200 mg capsule 200 mg PO BID Qty: 60 0RF aspirin 81 mg tablet,delayed release (DR/EC) 81 mg PO BID Qty: 60 0RF pantoprazole 40 mg tablet,delayed release (DR/EC) 40 mg PO DAILY Qty: 14 0RF dexamethasone 4 mg tablet 4 mg PO DAILY Qty: 2 0RF oxycodone 5 mg tablet 5 mg PO Q4H MDD 6 tabs PRN (Reason: pain) Qty: 12 0RF Continued lamotrigine [Lamictal] 200 mg tablet 300 mg PO BID Patient Comments: 06/22/22- pt reports 325 mg po BID for total of 650 mg daily calcium carbonate-vitamin D3 600mg (1,000mg) -1,000 unit tablet 1 tab PO DAILY lamotrigine [Lamictal] 25 mg tablet 25 mg PO BID Patient Comments: 06/22/22- pt takes total of 325 mg po BID per pt report for daily total of 650 mg. docusate sodium [Colace] 100 mg capsule 100 mg PO DAILY levothyroxine 125 mcg capsule 125 mcg PO HS hydrochlorothiazide 25 mg tablet 25 mg PO DAILY lisinopril 40 mg tablet 40 mg PO DAILY cyanocobalamin (vitamin B-12) [Vitamin B-12] 1,000 mcg tablet extended release 1,000 mcg PO DAILY ketoconazole 2 % cream 1 applic topical DAILY Qty: 120 6RF Rx Instructions: Apply to 1g to skin and toenails once daily metoprolol succinate 100 MG tablet extended release 24 hr 100 mg PO DAILY simvastatin 20 MG tablet 20 mg PO DAILY cholecalciferol (vitamin D3) 1,000 UNIT capsule 1,000 unit PO BID vitamin E (dl, acetate) 450 mg (1,000 unit) capsule 1,000 mg PO DAILY Patient Comments: 06/22/22- pt reports taking 1000 mg daily Discontinued acetaminophen [Tylenol Arthritis Pain] 650 mg tablet extended release 1,300 mg PO Q12H aspirin [Aspir-81] 81 mg Tablet,Delayed Release (Dr/Ec) 81 mg PO DAILY Discharge Instructions Additional Instructions: Total Hip Discharge Instructions Activity: The most important activity is to walk. You should try to take short walks a few times a day. You have no restrictions on movement or positioning, but do not try to force what you do. You will find some stiffness and weakness with hip flexion (lifting your knee). Do not try to strengthen this too early, continue to practice walking and stairs and this will come. - Outpatient physical therapy can be helpful to help return you to a normal gait and improve your flexibility and strength. This can start around 2 weeks. For some patients, it´s not necessary. Usually this is determined at the time of discharge or at the first post-operative visit. - You should wear the LILIA hose on both legs for 2 weeks. Dressing: Keep the surgical dressing in place for at least one week. After the first week it may be removed and replace with light gauze and tape or nothing. It may get wet after 3 days but avoid soaking the dressing. If it gets wet, just lightly pat dry. It is important to always keep some gauze between skin folds, especially when you are sitting. Spend some time with the wound exposed when you are lying flat as the incision does wrinkle onto itself. Medications: - You should take Tylenol and an anti-inflammatory Celebrex as your primary pain control medications. If the Celebrex is too expensive or not covered, please call the office for another alternative (Advil/Ibuprofen or Naproxen/Aleve). - You have been prescribed a stronger pain medication Oxycodone for breakthrough pain, take as needed as prescribed. - You have also been prescribed a stomach acid reduction agent Pantoprozole to help reduce stomach acid and reflux. - You have also been prescribed Decadron to help with post-operative nausea and pain. You will take this for two days starting tomorrow. - You will be taking Aspirin 81mg twice a day for DVT prevention unless instructed otherwise. - If you have constipation you should take Colace or Miralax (both [id number]). It takes most people 3-4 days to have a bowel movement. Follow-up: 2 weeks If you have any acute concerns or questions, please do not hesitate to contact the office at [phone]. You may contact Dr. Fernandez with any questions after hours through the hospital at [phone] or on his cell phone at [phone]. Stand Alone Forms: Anesthesia Discharge Inst., Dione Caputo (DSU) Referrals: Prakash Fernandez MD [ [facility] STAFF PHYSICIAN, Orthopaedic Surgical] - 07/04/25 10:45 am Equipment/Supplies: Walker Activity:: Activity as Tolerated Shower/Bathe:: 72 hours Diet:: As Tolerated Discharge Orders Discharge Orders: Discharge Order (Routine); Ordered 06/19/25 Ordered By: Zac Pickard DS: Diagnosis Discharge Diagnosis (1) Osteoarthritis of right hip: Status: Acute
[2025-06-19] MEDS: ceFAZolin 2 GM/50 ML BAG IVPB (07:46)
[2025-06-19] MEDS: TRANEXAMIC ACID/SOD. CHL. 1,000 MG/100 ML BAG 600 MG IVPB (07:52)
[2025-06-19] MEDS: EPINEPHrine 1 MG/ML AMP pres-free (08:11)
[2025-06-19] MEDS: ROPIvacaine 0.2% 200 MG/100 ML BAG (08:11)
[2025-06-19] MEDS: Ketorolac 30 MG/ML VIAL (08:11)
--- NOTE | 2025-06-19 08:49 | ROE_ITS ---
Operative Note Operative Note PRE-OP DIAGNOSIS: Right Hip Osteoarthritis POST-OP DIAGNOSIS: same PROCEDURE: Right Anterior Total Hip Arthroplasty with Intraoperative Navigation SURGEON: Prakash Fernandez SUPERVISOR COFFEE: Zac Pickard ANESTHESIA TYPE: Spinal Refer to Anesthesia Record ESTIMATED BLOOD LOSS: 200 PATHOLOGY: none sent TOURNIQUET TIME: 0 COMPLICATIONS: None Patient was transported to: PACU Patient's condition: stable Implants: 1. Depuy Eagle Acetabular Component, 52mm 2. Depuy Acetabular Liner, [id number] 3. Depuy Actis Standard Collared Femoral Stem, Size 4 4. Depuy Altrx Ceramic Femoral Head, Size 36+5mm Indications: I have seen Heather in clinic for symptoms of hip arthritis, confirmed with radiographic findings. She has exhausted nonoperative methods and was having significant limitations in daily function and desired better function and less pain. I discussed the technical details of a hip replacement. I explained the risks of the procedure to include, but not limited to, bleeding, infection, pain, stiffness, fracture, damage to nerves and vessels, damage to muscles and tendons, loosening, instability, leg length inequality, need for repeat procedure, blood clot and cardiopulmonary demise. Despite these risks, Heather elected to proceed. Findings: There was significant signs of arthritis throughout the hip with notable synovitis and femoral neck osteophytes. Procedure Description: Heather was greeted in the preoperative holding area where the correct side was identified and marked. The consent was reviewed with the patient and signed. The history and physical was updated. All questions were answered. She was taken back to the operating room. A spinal anesthestic was then administered. The feet were wrapped with cast padding and Coban and then placed into the boot liners and then into the boots. Care was taken to protect the skin and make sure the heels were fully down and the boots were stable. The patient was then positioned onto the HANA table. Both legs were held in a shirley tral position. SCDs were applied. The patient was then slid down onto a peroneal post. Prophylactic antibiotics in the form of Cefazolin were administered. 1g of Tranxemic Acid was given intravenously within 30 minutes of incision. The right leg was then prepped with Chloraprep and draped in a standard fashion. A second prep with Chloraprep was performed prior to placement of a shower-curtain type drape with Iodine impregnated skin protection. A timeout to confirm correct identity, side and site, procedure, allergies, anesthesia, and medical concerns was performed. An obliquely oriented incision was made starting lateral to the ASIS and running distal over the Tensor Fascia Mary Jane (TFL) muscle belly toward the fibular head, approximately 10cm. The skin and soft tissue was dissected sharply, through Darlene´s fascia, and to the fascia of the TFL. With the fascia and superior border of the IT band identified, the fascia was incised with a new knife just above any perforators from the IT band. The TFL muscle belly was bluntly dissected away from the fascia and moved laterally. The fat between TFL and rectus was identified to ensure the dissection was not within the TFL. Blunt dissection created space between abductors and the capsule and retractor was placed over the lateral femoral neck. The fibers of the rectus femoris tendon were identified and these were freed from the anterior capsule. A second cobra retractor was placed around the medial femoral neck. The TFL was further retracted laterally to show the deep fascia. Careful dissection through this layer identified three main crossing vessels of the lateral femoral circumflex. These were cauterized in multiple locations and then cut without any noticeable bleeding. The TFL was further released bluntly from the deep fascia to expose anterior hip capsule and fat The soft tissue orthopaedic retractor was then placed beneath the TFL and against sartorius and medial soft tissues to protect and retract the soft tissues. A T-capsulotomy was then performed starting at the superior lateral acetabulum and moving distally to the intertrochanteric ridge. These capsular flaps were tagged with a No. 1 Vicryl and elevated from within. The capsular flaps were released to the shoulder of the lateral neck and to the lesser trochanter to give excellent visualization of the proximal femur. A neck osteotomy was performed using an oscillating saw based on preoperative templates. This cut started in the shoulder and of the lateral neck and exited medially. The saw was at all times directed medially to avoid injury to the greater trochanter. Gross traction was applied to the leg and the osteotomy opened. The femoral head was removed with a corkscrew, making sure to protect the TFL on its exit. Traction was released after head removal. This was measured on the back table to determine the starting reamer size. Portions of the rectus obscuring visualization were minimally elevated off the superior acetabulum. An anterior retractor was placed over the anterior wall between capsule and labrum and attached to the Gripper retraction system. The femur was rotated to 90 degrees and medial capsule was fully released until the lesser trochanter was palpable and visible; the femur was returned to 30 degrees. A posterior retractor was placed similarly between capsule and labrum. This provided excellent visualization. The contents of the cotyloid fossa were removed with electrocautery and the labrum was removed with a knife. There was a notable floor osteophyte. There was significant chondromalacia of the superior acetabulum. Acetabular reaming began with a 47mm reamer. This first reaming was directed anterior to posterior and medial to get down to the true floor. This was in spected and reamed until the true floor was reached. The anterior retractor was then released and entry and exit was provided by traction on the capsular flaps. I then reamed sequentially up to a 52mm reamer where good fit was obtained. The larger reamers were oriented based on anatomical reference of the anterior and lateral brasher to ensure proper abduction and anteversion. Positioning and size was confirmed with the fluoroscopy. A 52mm Depuy Eagle acetabular component was selected. The acetabulum was reamed around the periphery with the selected acetabular size to prevent a rim fit. The deep tissues were irrigated. The acetabular component was then impacted in a position of about 40-45 degrees of abduction and 15-20 degrees of anteversion, using the patient´s anatomy as the ultimate landmark. Fluoroscopy was used to confirm this. There was excellent deputy director of public works of the acetabular component and the inserting handle was removed. The acetabular liner, Depuy [id number] polyethylene liner, was inserted and lined up with the tines of the acetabular component. There was no soft tissue interposition. The liner was then impacted into position and confirmed to be well-seated. A portion of the gem-articular cocktail was then injected around the acetabulum into the capsule and periosteum. This cocktail consisted of 123mg of Ropivacaine, 0.25mg of Epinephrine, 0.04mg of Clonidine, and 15mg of Ketorolac, diluted to 50cc. The leg was rotated to 120 degrees. Any remaining medial capsule was released until the lesser trochanter was easily palpable. A retractor was placed med ially. The lateral capsule was further released into the shoulder to allow access to the greater trochanter. A Lima retractor was placed over the greater trochanter which allowed the trochanter to flip in front of the capsule for excellent exposure. The leg was brought down into maximal extension and 20 degrees of adduction while ensuring there was no impingement on the acetabulum. Any remnant capsule within the trochanter was released. Piriformis and obturator externis were identified and protected. There was excellent access to the proximal femur. The lateral neck remnant was removed with a rongeur. A blunt canal probe was used to identify the canal and trajectory for later broaching. A box osteotome initiated the broach course. A small curved rasp and a curved curette were used to work laterally. Broaching then began with a starter Actis broach. This was inserted manually around the trochanter and into the canal before mallet blows. The broach was seated to a few millimeters below the cut level based on the neck cut and the preoperative template. Sequential broaching was continued with the Minkase pneumatic broaching device until a tight fit was obtained with good rotational control of the femur. A trial standard neck was inserted along with a +1.5 trial head. The leg was brought out of extension and adduction and then reduced with traction and internal rotation. The leg was stable anteriorly in a position of 30 degrees of extension and 90 degrees of external rotation. Fluoroscopy was used to ensure there was no fracture and the stem was seated well. Leg lengths were checked with an AP pelvis and pelvic reference points. [employer] navigation system was used to confirm appropriate positioning and leg length and offset. This showed slight under correction of the offset but overcorrection of the leg length. Leg length goal was approximate 2 to 3 mm. Therefore, I advanced the stem and went up on my head to a +5 to increase offset. Once co ntent with the desired offset and leg lengths, the leg was brought back into extension, external rotation and adduction. The periosteum and surrounding tissue was injected with remaining portion of the gem-articular cocktail. The proximal femur was irrigated as well as the deep tissues. The Depuy Actis standard collared stem, size 4, was then manually inserted into the proximal femur making sure to control rotation. It was then malleted into position with light blows, giving breaks to allow bone expansion and decrease risk of fracture. The selected Depuy Altrx Ceramic Head, size 36+5mm, was then placed onto the clean and dry trunnion and secured with impaction onto the tapered fit. The leg was brought back out of extension and adduction and reduced with traction and internal rotation. Stability was confirmed with no shuck at 90 degrees of external rotation and 30 degrees of extension. No impingement through range of motion arc. Final x-ray images were obtained with fluoroscopy to confirm adequate positioning and no intraoperative fracture. The deep tissues were thoroughly irrigated with Surgiphor, betadine solution. This was allowed to sit in the wound for 3 minutes before being thoroughly irrigated out with normal saline. The capsule was then reapproximated with the previously placed sutures and the indirect head of the rectus was inspected and reapproximated with a #1 Vicryl. The TFL fascia was finally closed with a No. 2 Stratafix, barbed suture. Deep tissues were then reapproximated with 0 Vicryl and a running 2-0 Vicryl. The skin was closed with a running 4-0 Monocryl in a subcuticular fashion. This was reinforced with skin glue. A Mepilex silver dressing was applied. At the end of the case, all counts were correct. Heather was transferred to the hospital bed without difficulty and suffering no apparent complication. Heather has a good prognosis. Physical therapy will start today and without restrictions, weight-bearing as tolerated. Aspirin 81mg BID will be used for DVT prophylaxis. Date of Procedure: 06/19/25
--- NOTE | 2025-06-19 08:50 | DI.RAD_ITS ---
Exam(s) XR HIP RT IN OR EXAM: XR HIP RT IN OR CLINICAL HISTORY: right hip OA TECHNIQUE: 2D and realtime digital imaging was performed. CONTRAST MATERIAL: Refer to procedure report. COMPARISON: CR XR HIP PELVIS ADULT BL from 12/07/2024 FINDINGS: Fluoroscopy was provided for Dr. Fernandez during the performance of a right total hip arthroplasty. Please refer to the procedure report for complete details. Ka,r=3.15 mGy IMPRESSION: RADIATION DOSE DELIVERED: 0.0 0.0 0
[2025-06-19] MEDS: fentaNYL 100 MCG/2 ML VIAL IVP ×2 (09:26→09:56)
[2025-06-19] MEDS: Tranexamic Acid 650 MG TAB 1300 MG PO (10:19)
[2025-06-19] MEDS: oxyCODONE 5 MG TAB PO (10:19)
--- NOTE | 2025-06-19 11:46 | W.ANESPOSTOP ---
Postoperative Evaluation Date, Time and Location Date Performed: 06/19/25 Time Performed: 11:18 Patient Location: Day Surgery Unit Vital Signs Most Recent Imported Vital Signs: Most Recent Vital Signs Temp Pulse Resp BP Pulse Ox 36.4 C L 64 16 165/53 H 97 06/19/25 10:44 06/19/25 10:44 06/19/25 10:44 06/19/25 10:44 06/19/25 10:44 Pain Score Most Recent Pain Score: Most Recent Pain Score Pain Level 4 06/19/25 10:44 Assessment Mental Status: Awake (Alert & Oriented to Patient Baseline) Airway and Respiratory Function: Patent airway with normal (patient baseline) respiratory exam Cardiovascular Function: Hemodynamically Stable Hydration Status: Adequately Hydrated Nausea & Vomiting: No Nausea or Vomiting Pain: Pain is tolerable per patient Peripheral Nerve Block: Patient did not receive a nerve block
--- NOTE | 2025-06-19 11:48 | IN_ITS ---
PT Notes Visit Reasons: R THR Physical Therapy Inpatient Initial Evaluation Date: 06/19/2025 Referring Doctor: Zac Pickard PT Orders: PT CONSULT: Precautions: Fall. Standard. Weight bearing as tolerated on the R LE. Patient Profile/Admitting Diagnosis: Pt is 70 year-old female with degenerative joint disease of the R hip and is S/P right anterior total hip arthroplasty on POD 0. PMHx: Dystrophia unguium (Acute) Onychomycosis (Acute) History of thyroid cancer (Acute) History of thyroidectomy, total (Acute) Trochanteric bursitis, right hip (Acute) Degenerative joint disease of left hip (Chronic) Osteoarthritis of right hip (Acute) POCUS 12/07/24 Bilateral high frequency sensorineural hearing loss (Acute) Snoring (Acute) Nasal obstruction (Acute) Nasal septal spur (Acute) Gastro-esophageal reflux disease without esophagitis (Acute) Foot drop, unspecified foot (Acute) Pure hypercholesterolemia, unspecified (Acute) Episode of memory loss (Acute) Radiculopathy, lumbosacral region (Acute) Obstructive sleep apnea (Chronic) Benign paroxysmal positional vertigo of left ear (Acute) Other abnormalities of gait and mobility (Acute) Hyperlipidemia, unspecified (Acute) Nonintractable epilepsy with status epilepticus (Acute) Other polyosteoarthritis (Acute) Colorectal polyps (Acute ~01/08/19) pt. unsure if she had a polyp, pt. reports she had a uterine polyp Arthritis (Acute 05/31/14) Elevated lipids (Acute 05/31/14) Hypertension (Acute 05/31/14) Migraine (Acute 05/31/14) Seizure disorder (Acute 05/31/14) Grand Mal and petit mal seizure. Last seizure 2018 F/U with with Dr. Pineda in [place] Pt. states seizures are controlled. Pt. stated she would like it note that she cannot take her Lamictal with estrogen because she was told it would cancel out the effects of the Lamitcal. Medical History Sleep apnea pt. uses CPAP Surgical History S/P colonoscopy (~01/08/19) 2006-normal, pt. states she has one since Replacement of total knee joint bilateral in 2016 section X 3 Social History/Home Situation: Pt lives at home with . Pt has a ramp with a railing on the right, in the back of the house that will allow her to enter without having to use her stairs. Pt will sleep on the same floor as she did to enter. There is a bathroom and a portable tub on this floor as well. Pt hopes to descend and climb multiple stairs to reach the shower that is below the floor level that she will be staying. Had been independent with ambulation without device prior to surgery. Equipment Owned/DME: FWW, lamont Subjective: Pt reported feeling tired. This was a result from the pain medication provided to her. Pt reported she has been seeing PT and has been performing exercises for her hip before the surgery. Half way through ambulation treatment, pt reported feeling lightheaded, nauseas, tired, and needed to rest for a moment. Once pt was in the recliner she stated that she was hungry and has eaten just a couple crackers, this was confirmed with the RN. Pt hadn't eaten yet because she was too tired and wanted to rest. Pt mentioned throughout the session she was ready to go home. Objective: General Observation: Mepilex Ag over surgical incision. TEDS in B legs. Mental Status: Alert and oriented as to person, place, time, and purpose. Able to pay attention, focus, and respond appropriately. Pain: 2/10 in Right Hip Vital Signs: monitored by nursing. Pt needed to sit because of lightheadedness after 20 feet of ambulation and after using the toilet. Vitals were taken at this point by nursing. PT were told vitals are WNL by nursing. ROM: Right Upper Extremity: Grossly functional. Left Upper Extremity: Grossly functional Right Lower Extremity: Hip flexion decreased. Knee flexion decreased. Ankle dorsiflexion WFL. Ankle plantarflexion WFL. Left Lower Extremity: Grossly functional Strength: Right Upper Extremity: Grossly 5/5 Left Upper Extremity: Grossly 5/5 Right Lower Extremity: Grossly 3/5 Left Lower Extremity: Grossly 4/5 Bed Mobility/Transfers: Minimal assessment minimal cueing provided for use of B hands as needed for support, movement sequence, AD management, and posture to reduce fall risk and minimize pain report Rolling with minimal assist of 1 with verbal cues for safe/correct technique Sit to stand with contact guard with verbal cues for safe/correct technique Stand to sit with Independent with verbal cues for safe/correct technique Bed to reclining chair with contact guard assist of 1 and stand by assist of 1 with verbal cues for safe/correct technique Gait: Instructed patient with level surface ambulation of 25 feet + 45 feet + 45 feet requiring contact guard assist of 1 and stand by assist of 1. Hiwot decreased. Step height decreased. Step length decreased. Patient occasionally was asked about overall response to activity to ensure safety. Minimal verbal cueing provided for limb movement sequnce, AD mangement, posture to minimize pain report and reduce fall risk. Two seated rests were made as patient was reporting lightheadedness and fatigue. Stairs: Guided patient with safe and correct navigation of 6 x 4-inch steps while hold ing onto rail andn a SPC on one side with contact guard assist of DPTS Ulisses and stand by assist of PT. Minimal verbal cueing was provided for limb movement sequence. Hand placement, Ad management, and posture to minimize pain report and reduce fall risk. Balance: Static Sitting: normal Dynamic Sitting: good Static Standing: fair Dynamic Standing: fair Special Tests: Mobility Limitations Standardized Measure [facility] AM-PAC 6 clicks Basic Mobility Inpatient Short Form: Raw Score: 15 CMS Score: 57.70% deficit Informed Consent/Education: Patient was instructed in purpose of PT consult and plan of care. Agreeable to proceed with established PT POC to achieve personal goals. Trained patient with correct performance of exercises below to maximize motor control, joint flexibility, soft tissue extensibility of the R hip musculature to facilitate return to independent functional mobility performance. Access Code: [email or web address] URL: [email or web address] Date: 06/19/2025 Prepared by: Xi Weston Exercises - Gluteal Sets - 1 x daily - 7 x weekly - 1 sets - 10 reps - 5 hold - Supine Heel Slide - 1 x daily - 7 x weekly - 1 sets - 10 reps - 5 hold - Supine Ankle Pumps - 1 x daily - 7 x weekly - 1 sets - 10 reps - 5 hold - Seated March - 1 x daily - 7 x weekly - 1 sets - 10 reps - 5 hold - Seated Long Arc Quad - 1 x daily - 7 x weekly - 1 sets - 10 reps - 5 hold ERIC protocol automatically populate, Assessment: Pt was able to demonstrate the ability to perform her HEP in bed. HEP was provided by JOHN Gtz with demonstration, tactile and verbal cueing. Pt was able to ambulate 35 feet with FWW before having to sit, and rest. PT Terra provided assistance with pt going form stand to sit, and asked the Nursing to collect vitals from the pt. Once the pt was rested and vitals were confirmed WNL patient ambulated another 35 feet with contact guard performed by JOHN Gtz and stand by assist with wheel chair by PT Terra. JOHN Gtz demonstrated proper safety technique for ascending and descending stairs. Pt completed by stairs with tactile cueing from JOHN Gtz and PT Terra. Patient ambulated 25 with FWW and contact guard from JOHN Gtz and stand by assist PT Terra who followed behind with a wheel chair. Pt needed to stop and rest without the need to sit, JOHN Gtz confirmed pt was fine to proceed to the recliner. Pt performed stand to sit to recliner with contact guard x1. Pt became lightheaded during the session, with a decreased hiwot and step length. Pt also had decreased ROM and strength in her RLE. From these findings pt would benefit from outpatient physical therapy to address these deficits and decrease her AM-PAC deficit score to increase functional deficits and prevent readmission. Patient presents with clinical signs and symptoms consistent with current/admitting diagnoses that have resulted to mobility limitations, gait instability, generalized weakness, and overall ADL decline as demonstrated by the following impairment level findings: 1. Decreased strength to R hip major muscle groups 2. Impaired activity tolerance 3. Limitation of joint range of motion in R hip Impairments are contributing to the following functional limitations: 1. Decline in bed mobility skills 2. Decline in transfer skills 3. Difficulty with ambulation without assistive device and physical assistance 4. Increased completion time for mobility ADL performance 5. Increased risk for falls Patient is assessed as a 81816 complexity based on the following: History: 70-year-old female with past medical history as indicated above Examination: Demonstrable impairment in strength, balance, and mobility level with underlying impairments and functional limitations as exhibited above as well as deficit score of 57.70% utilizing the [facility] Mobility Inpatient Short Form Presentation: evolving Decision Makin Moderate complexity Goals: N/A. PT evaluation and one treatment session only for functional mobility training and HEP instruction. Plan of Care/Treatment Plan: N/A. PT evaluation and one treatment session only for functional mobility training and HEP instruction. DISCHARGE RECOMMENDATIONS: Home when medically cleared by orthopedic surgeon. Recommend outpatient PT services in order to optimize functional mobility outcomes and facilitate return to independent community ambulation without an assistive device. This is a TREATMENT CODE/TIME: 98682 x 20 minutes for 1 unit, 24066 x 22 minutes for 1 unit (11:48-12:30) Thank you for the opportunity to participate in the care of this patient. Xi Weston PT, DPT, [facility] [place], [place]
== END 2025-06-19 12:54 | disposition home or self-care (01) ==
PROVIDERS: PCP Nurse Practitioner Family; Visit Provider Student in an Organized Health Care Education/Training Program
PROC: (CPT 27130; principal; 2025-06-19 07:30)
DX: M16.11 Unilateral primary osteoarthritis, right hip (principal)
CPT/HCPCS: 20985; 27130; 97162; 97530; 73501; C1776; J0166; J0690; J1100; J1885; J2250; J2371; J2401; J2405; J2704; J2795; J3010

== ENCOUNTER 2025-07-04 14:48 | Outpatient (CLI) | payer MEDICARE, SELFPAY ==
--- NOTE | 2025-07-04 10:30 | DI.RAD_ITS ---
Exam(s) XR HIP RT COMPLETE AP PELVIS EXAM: XR HIP RT COMPLETE AP PELVIS CLINICAL HISTORY: 1st POST OP S/P R ERIC. TECHNIQUE: 2D digital imaging was performed. COMPARISON: CR XR HIP PELVIS ADULT BL from 12/07/2024 XA XR HIP RT IN OR from 06/19/2025 FINDINGS: 3 views Two views There is satisfactory position alignment of the components of the recently placed right hip prosthesis (06/19/2025). No evidence of fracture or loosening. No evidence of osteomyelitis. IMPRESSION: Stable satisfactory appearance of recently placed right hip prosthesis. DATA REPOSITORY: RADIATION DOSE DELIVERED:
== END 2025-07-04 14:49 | disposition home or self-care (01) ==
LOC: DIORS 14:49
PROVIDERS: PCP Nurse Practitioner Family; Visit Provider Physician Assistant
DX: Z47.1 Aftercare following joint replacement surgery (principal); Z96.641 Presence of right artificial hip joint
CPT/HCPCS: 99024; 73502

== ENCOUNTER → 2025-08-01 11:10 | Outpatient (BNVA) | payer MEDICARE, SELFPAY | PROVIDERS: PCP Nurse Practitioner Family; Referring Provider Nurse Practitioner Family; Visit Provider Physician Assistant | DX: Z47.1 Aftercare following joint replacement surgery (principal); Z96.641 Presence of right artificial hip joint | CPT/HCPCS: 99024 ==